=== PATIENT | female | born 1970 | race Caucasian/White ===

== ENCOUNTER → 2023-12-23 10:39 | Outpatient (REF) | payer OTHER, SELFPAY | LOC: WDC 10:39 | PROVIDERS: ATTENDING PHYSICIAN Obstetrics & Gynecology | DX: Z12.31 Encounter for screening mammogram for malignant neoplasm of breast (principal); N83.202 Unspecified ovarian cyst, left side | CPT/HCPCS: 76856; 77063; 77067 ==

== ENCOUNTER → 2024-12-23 15:25 | Outpatient (REF) | payer OTHER, BC, SELFPAY | LOC: WDC 15:25 | PROVIDERS: ATTENDING PHYSICIAN Obstetrics & Gynecology; FAMILY PHYSICIAN Internal Medicine | DX: Z12.31 Encounter for screening mammogram for malignant neoplasm of breast (principal) | CPT/HCPCS: 77063; 77067 ==

== ENCOUNTER → 2025-02-16 07:37 | Outpatient (REF) | payer OTHER, BC, SELFPAY | LOC: HWRAD 07:37 | PROVIDERS: ATTENDING PHYSICIAN Family Medicine; FAMILY PHYSICIAN Internal Medicine | DX: R10.12 Left upper quadrant pain (principal); R10.A0 Flank pain, unspecified side | CPT/HCPCS: 76700 ==